=== PATIENT | female | born 1945 | race Caucasian/White ===

== ENCOUNTER 2018-04-06 11:37 | Emergency (ER) | payer MEDICARE ==
[~2018-04-06] VITALS: Ht 175.3 cm; Wt 90.7 kg
[2018-04-06] MEDS ORDERED: APIXABAN (12:10)
[2018-04-06] MEDS ORDERED: TORSEMIDE20 MG (12:12)
[2018-04-06] MEDS ORDERED: METOPROLOL SUCC25 MG (12:12)
[2018-04-06] MEDS ORDERED: SPIRONOLACTONE25 MG PO (12:12)
[2018-04-06] MEDS ORDERED: ESTRACE42.5 GM TOP (12:13)
--- NOTE | 2018-04-06 12:15 | Diagnostic Imaging Report ---
EXAMINATION: CXR 2 VIEW - HOPD INDICATION: Cough. Congestion. Sore throat. COMPARISON: None FINDINGS: TUBES and LINES: None. LUNGS: Lungs are well inflated. Perihilar peribronchial hazy opacity could be due to bronchitis. There is no evidence of pneumonia or pulmonary edema. PLEURA: No pleural effusion or pneumothorax. HEART AND MEDIASTINUM: The cardiomediastinal silhouette is unremarkable. BONES AND SOFT TISSUES: No acute osseous lesion. Soft tissues are unremarkable. UPPER ABDOMEN: No free air under the diaphragm. IMPRESSION: Findings which could be due to bronchitis. Signed by: Dr. Parish Canela M.D. on 04/06/2018 12:12 PM
== END 2018-04-06 12:35 | disposition home or self-care (01) ==
LOC: FSED 11:37
DX: R05 Cough (principal); J20.8 Acute bronchitis due to other specified organisms; H66.012 Acute suppurative otitis media with spontaneous rupture of ear drum, left ear
CPT/HCPCS: 71046; 99283